=== PATIENT | male | born 1975 | race Caucasian/White ===

== ENCOUNTER → 2024-01-12 06:21 | Day surgery (SDC) | payer BC, SELFPAY | LOC: GI 06:21 | PROVIDERS: ATTENDING PHYSICIAN Internal Medicine Gastroenterology | DX: K64.8 Other hemorrhoids (principal); Z87.19 Personal history of other diseases of the digestive system | CPT/HCPCS: 45331; 88305 ==

== ENCOUNTER → 2024-02-10 12:11 | Outpatient (REF) | payer BC, SELFPAY | LOC: HWRAD 12:11 | PROVIDERS: ATTENDING PHYSICIAN Nurse Practitioner; FAMILY PHYSICIAN Family Medicine | DX: R10.32 Left lower quadrant pain (principal) | CPT/HCPCS: 76882 ==

== ENCOUNTER → 2024-04-01 07:39 | Outpatient (REF) | payer SELFPAY | LOC: RAD 07:39 | PROVIDERS: ATTENDING PHYSICIAN Student in an Organized Health Care Education/Training Program | DX: E78.2 Mixed hyperlipidemia (principal) | CPT/HCPCS: 75571 ==

== ENCOUNTER → 2024-09-02 10:30 | Outpatient (REF) | payer BC, SELFPAY | LOC: RAD 10:30 | PROVIDERS: ATTENDING PHYSICIAN Orthopaedic Surgery Hand Surgery; FAMILY PHYSICIAN Family Medicine | DX: S46.212A Strain of muscle, fascia and tendon of other parts of biceps, left arm, initial encounter (principal); S46.211A Strain of muscle, fascia and tendon of other parts of biceps, right arm, initial encounter | CPT/HCPCS: 70030 ==

== ENCOUNTER → 2025-02-01 07:39 | Outpatient (REF) | payer BC, SELFPAY | LOC: HWEVLT 07:39 | PROVIDERS: ATTENDING PHYSICIAN Radiology Vascular & Interventional Radiology | DX: I83.893 Varicose veins of bilateral lower extremities with other complications (principal) | CPT/HCPCS: 93970 ==